=== PATIENT | male | born 2000 ===

== ENCOUNTER 2024-09-23 08:12 | Outpatient (CLI) | payer OTHER | END 2024-09-23 08:13 | disposition home or self-care (01) | LOC: CSHSLEEP 08:12 | PROVIDERS: ATTEND Family Medicine | DX: G47.33 Obstructive sleep apnea (adult) (pediatric) (principal); R53.83 Other fatigue; R09.89 Other specified symptoms and signs involving the circulatory and respiratory systems; G25.89 Other specified extrapyramidal and movement disorders; F41.9 Anxiety disorder, unspecified; R06.83 Snoring | CPT/HCPCS: 95810 ==

== ENCOUNTER 2024-10-21 19:30 | Outpatient (CLI) | payer OTHER | END 2024-10-21 19:31 | disposition home or self-care (01) | LOC: CSHSLEEP 19:30 | PROVIDERS: ATTEND Family Medicine | DX: G47.33 Obstructive sleep apnea (adult) (pediatric) (principal); R53.83 Other fatigue; R09.89 Other specified symptoms and signs involving the circulatory and respiratory systems; G25.89 Other specified extrapyramidal and movement disorders; F41.9 Anxiety disorder, unspecified; R06.83 Snoring | CPT/HCPCS: 95811 ==